=== PATIENT | female | born 1970 | race Caucasian/White ===

== ENCOUNTER 2017-05-02 18:49 | Emergency (ER) | payer SELFPAY ==
[~2017-05-02] VITALS: Ht 142.2 cm; Wt 79.0 kg
[2017-05-02] MEDS ORDERED: KETOROLAC 60MG/2ML VIAL IM ONE (23:15)
[2017-05-03 00:28] VITALS: BP 111/56
== END 2017-05-03 00:31 | disposition home or self-care (01) ==
LOC: ER 18:49
DX: K08.89 Other specified disorders of teeth and supporting structures (principal); Z98.1 Arthrodesis status; Z85.9 Personal history of malignant neoplasm, unspecified
CPT/HCPCS: 96372; 99283; J1885; Z7610